=== PATIENT | female | born 1975 | race Caucasian/White ===

== ENCOUNTER → 2017-06-23 | Outpatient (CLI) | payer OTHER ==
--- NOTE | 2017-06-23 08:42 | RAD ---
2 Views of the Chest 06/23/2017 2:00 AM Indication: COUGH Comparison: Chest radiograph December 24, 2010 Findings: No new focal consolidation or infiltrate is identified. Increased density over the lung bases an AP view is most likely secondary to breast implants. No pneumothorax is seen. Multiple areas suggestive of pulmonary blebs are similar to prior study. No acute osseous changes identified. Impression: 1.No evidence of acute cardiopulmonary process or acute change from prior study is identified. 2. Multifocal bilateral blebs appear to be present. This is of uncertain etiology. Follow-up CT chest could be performed for further characterization as clinically indicated.
--- NOTE | 2017-06-23 08:49 | RAD ---
Lumbar spine, 3 views, 06/23/2017: History: Chronic low back pain The lumbar vertebral heights and intervertebral disc spaces are well-maintained. There are mild scattered marginal spurs. No fracture or subluxation is evident. Aortic calcific plaquing is present. IMPRESSION: 1. Mild marginal spurring. 2. No acute lumbar spine abnormality is detected.
--- NOTE | 2017-06-23 13:23 | RAD ---
DATE: 2017 EXAM: MAMMO BEENA SCREENING BILATERAL HISTORY: Routine screening, breast implants COMPARISON: Baseline study This study was interpreted with the benefit of Computerized Aided Detection (CAD). The breast parenchyma is heterogeneously dense, which could reduce sensitivity of mammography. Breast parenchyma level C. FINDINGS: 2-D routine and implant exclusion views were obtained in CC and MLO projections. Implant exclusion 3-D mammograms were also obtained in CC and MLO projections. The fibroglandular tissues are somewhat nodular in character. A discrete 6-7 mm nodule is seen anterolateral in the left breast on oblique tomogram image #7 and cc tomogram image #28. It lies superficially at approximately the 4:00 location. No other suspicious breast densities are seen. Minimal benign type calcifications present. No suspicious microcalcifications are evident. IMPRESSION: Small left breast nodule. Sonographic evaluation is suggested. BI-RADS CATEGORY: 0 INCOMPLETE: NEEDS ADDITIONAL IMAGING EVALUATION AND/OR PRIOR MAMMOGRAMS FOR COMPARISON. RECOMMENDED FOLLOW-UP: ADD ADDITIONAL IMAGING PQRS compliance statement: Patient information was entered into a reminder system with a target due date for the next mammogram. Mammography is a sensitive method for finding small breast cancers, but it does not detect them all and is not a substitute for careful clinical examination. A negative mammogram does not negate a clinically suspicious finding and should not result in delay in biopsying a clinically suspicious abnormality. "Our facility is accredited by the [employer] Mammography Program."
== END | disposition home or self-care (01) ==
LOC: MAMMO 08:06
PROVIDERS: ATTEND Nurse Practitioner Family
DX: Z12.31 Encounter for screening mammogram for malignant neoplasm of breast (principal); M54.40 Lumbago with sciatica, unspecified side; Z72.0 Tobacco use
CPT/HCPCS: 71046; 72100; 77063; 77067

== ENCOUNTER → 2017-06-30 | Outpatient (CLI) | payer OTHER ==
--- NOTE | 2017-06-30 09:56 | RAD ---
Limited left breast ultrasound 06/30/2017 Clinical indication: Left breast nodule 4:00 position. Comparison: Screening mammogram 06/23/2017 Findings: Limited left breast ultrasound: At the 4:00 position, 5 cm from the nipple, there is a circumscribed, oval hypoechoic structure with no internal blood flow measuring 0.4 x 0.2 x 0.4 cm with no posterior acoustic enhancement and suggestion of internal echoes or septations. At the 4:00 position 8 cm from the nipple, there is a similar appearing circumscribed hypoechoic structure with no internal blood flow measuring 0.4 x 0.2 x 0.3 cm. Impression: 2 similar-appearing subcentimeter hypoechoic structures with internal septations or debris, may represent complicated cysts or fibroadenomas. Recommend 6 month follow-up left breast ultrasound and left breast mammogram to assess for stability BI-RADS CATEGORY: 3 PROBABLY BENIGN FINDING(S)-SHORT INTERVAL FOLLOW-UP SUGGESTED RECOMMENDED FOLLOW-UP: 6M 6 MONTH FOLLOW-UP PQRS compliance statement: Patient information was entered into a reminder system with a target due date for the next mammogram. Mammography is a sensitive method for finding small breast cancers, but it does not detect them all and is not a substitute for careful clinical examination. A negative mammogram does not negate a clinically suspicious finding and should not result in delay in biopsying a clinically suspicious abnormality. "Our facility is accredited by the [employer] Mammography Program."
== END | disposition home or self-care (01) ==
LOC: US 08:50
PROVIDERS: ATTEND Nurse Practitioner Family
DX: R92.8 Other abnormal and inconclusive findings on diagnostic imaging of breast (principal); Z72.0 Tobacco use
CPT/HCPCS: 76641

== ENCOUNTER → 2017-08-01 | Outpatient (CLI) | payer OTHER ==
--- NOTE | 2017-08-01 15:41 | CARD ---
MR#: [id number] Date of Study: 08/01/2017 Ordering Physician: JHONATAN SHEPARD, Referring Physician: Ruthy KAY: Shasta Roman RDCS APPROVED REPORT INDICATION Exertional Dyspnea RISK FACTORS Smoking Reason : Patient complained of shortness of breath PROCEDURE The patient underwent an Exercise Stress Test using the Eladio Protocol. Blood pressure, heart rate, a nd EKG were monitored. An Echocardiogram was performed by material handling technician in four stages in quad fashion. At peak stress four se lected images were obtained and placed side by side with resting images for comparison. STRESS ECHO FINDINGS The resting Echocardiogram showed normal left ventricular systolic contractility with an estimated Ej ection Fraction of about 60 %. The Stress Echocardiogram showed normal augmentation of myocardial wall segments using a 16 segment m rob. The Stress Echocardiogram left ventricular systolic contractility has an estimated Ejection Fraction of about 70%. Test Type: Exercise Stress Nurse/Tech: RT Yonas (R) (N), HANDY Ojeda Test Indications: Exertional Dypsnea Cardiac History and Allergies: Hypertension Resting Heart Rate: 71 bpm Resting Blood Pressure: 112/74mmHg Pretest Chest Pain: No chest pain Nurse/Tech Notes No chest pain, no acute EKG changes, Submaximal seondary dyspnea, peak exercise oxygen saturation 93% POST EXERCISE Target HR: 150 Max HR: 148 bpm 84% of Maximum Predicted HR: 177 bpm Exercise duration: 10 min:sec, 13 Stage Exercise capacity: 13.4METs Chest Pain: No. Arrhythmia: No. ST Change: No. INTERPRETATION Stress EKG Conclusion: Baseline EKG showed sinus rhythm. No ischemic changes at peak stress. No arr hythmias. Preliminary Notification Critical Value: No <Conclusion> Treadmill exercise stress echocardiogram did not show any evidence of ischemia or infarct at slightly submaximal stress level of 84% PMR. Normal left ventricle systolic function with ejection fraction estimated at 60%. Patient had excellent activity tolerance of 13.4 mets. Low risk for cardiac events. Signed by : Jhonatan Shepard, Electronically Approved : 08/01/2017 15:40:33
== END | disposition home or self-care (01) ==
LOC: ECHO 09:43
PROVIDERS: ATTEND Internal Medicine Cardiovascular Disease
DX: R06.09 Other forms of dyspnea (principal)
CPT/HCPCS: 93307; 93350

== ENCOUNTER → 2019-02-04 | Outpatient (CLI) | payer BC ==
--- NOTE | 2019-02-04 17:06 | RAD ---
CHEST PA LATERAL History: Shortness of breath Comparison: 06/23/2017 two-view chest x-ray exam. Findings: The cardiomediastinal silhouette is normal. Pulmonary vasculature is normal. The lungs are clear. No pleural effusion or pneumothorax is seen. There is no acute bone abnormality. Subtle interstitial thickening of the lung rodriguez is similar to previous exam. Emphysematous involvement of the upper lung rodriguez noted. IMPRESSION: No acute cardiopulmonary process. Electronically signed by: Clark Levy MD (02/04/2019 5:03 PM) [facility]
== END | disposition home or self-care (01) ==
LOC: RAD 16:36
PROVIDERS: ATTEND Physician Assistant Medical
DX: J43.8 Other emphysema (principal)
CPT/HCPCS: 71046

== ENCOUNTER → 2020-07-16 | Outpatient (CLI) | payer BC ==
--- NOTE | 2020-07-17 08:44 | RAD ---
EXAMINATION: XR CHEST 2V CLINICAL HISTORY: Shortness of breath, sternal chest pain EXAM DATE/TIME: 07/16/2020 2:54 PM COMPARISON: 02/04/2019 FINDINGS: Lines, Tubes, and Devices: None. Cardiomediastinal Silhouette: Normal heart size. Aortic atherosclerotic calcification. Lungs and Pleura: No evidence of focal airspace consolidation or pleural effusion. Chronic changes co mpatible with COPD/emphysema. Pulmonary vasculature unremarkable. Bones and Soft Tissues: Degenerative changes of the thoracic spine. IMPRESSION: No evidence of acute cardiopulmonary abnormality or significant interval change. Electronically signed by: Roberth Juarez DO (07/17/2020 8:41 AM) [id number]
== END ==
LOC: PMG 14:48
PROVIDERS: ATTEND Physician Assistant
DX: R06.02 Shortness of breath (principal); R07.9 Chest pain, unspecified; M47.814 Spondylosis without myelopathy or radiculopathy, thoracic region
CPT/HCPCS: 71046

== ENCOUNTER → 2020-12-09 | Outpatient (CLI) | payer BC ==
--- NOTE | 2020-12-09 13:34 | RAD ---
CT ABDOMEN+PELVIS WO INDICATION: ABDOMINAL PAIN, GASTRITIS, DIARRHEA EXAM: Noncontrast CT of the abdomen and pelvis. Coronal and sagittal reformatted images were perform ed. PQRS compliance statement: One or more of the following individualized dose reduction techniques were utilized for this examinat ion: 1. Automated exposure control 2. Adjustment of the mA and/or kV according to patient size 3. Use of iterative reconstruction technique COMPARISON: None FINDINGS: No free air, free fluid, or fluid collection. Lower chest: The visualized lower lungs are aerated. No pleural or pericardial effusion. ABDOMEN: Liver: Decreased hepatic attenuation along the falciform ligament, likely focal fatty infiltration Gallbladder and biliary: Normal gallbladder without radiopaque stone. Normal caliber bile ducts. Spleen: Normal spleen. Pancreas: The noncontrast pancreas is homogeneous in attenuation without peripancreatic inflammatory changes. Adrenal glands: Normal adrenal glands. Kidneys and ureters: No opaque urinary calculi. Normal kidneys and ureters. GI tract: The stomach is decompressed and poorly evaluated. Normal caliber small bowel and colon. Nor mal appendix. Vascular structures: Normal caliber abdominal aorta. Mild to moderate aortoiliac atherosclerotic dise ase per Lymph nodes: No lymphadenopathy in the abdomen or pelvis. PELVIS: Genitourinary system: Urinary bladder is decompressed. Uterus is present. SKELETAL STRUCTURES AND SOFT TISSUES: No acute osseous abnormality. L2 hemangioma. IMPRESSION: No acute findings. Electronically signed by: Lito Hudson MD (12/09/2020 1:32 PM) [id number]
== END ==
LOC: CT 10:43
PROVIDERS: ATTEND Physician Assistant Medical
DX: I70.0 Atherosclerosis of aorta (principal); R10.9 Unspecified abdominal pain; R19.7 Diarrhea, unspecified; K29.70 Gastritis, unspecified, without bleeding
CPT/HCPCS: 74176

== ENCOUNTER → 2021-06-21 | Outpatient (CLI) | payer BC ==
--- NOTE | 2021-06-21 12:28 | RAD ---
EXAM: Chest, 2 views. HISTORY: Chest pain after Covid 19 COMPARISON: 07/16/2020 FINDINGS: 2 views of the chest are obtained. There is been slight interval increase in diffuse inters titial opacity. There is emphysema and linear pleural parenchymal scarring superimposed on chronic in terstitial prominence. There is no consolidation, pleural effusion or pneumothorax. The heart is norm al in size. IMPRESSION: 1. Slight interval increase in diffuse interstitial opacity due to infiltrate or chronic interstitial changes. 2. Emphysema with linear pleural parenchymal scarring. Electronically signed by: Candelaria Gregory MD (06/21/2021 12:26 PM) [id number]
== END ==
LOC: RAD 12:11
PROVIDERS: ATTEND Physician Assistant Medical
DX: J43.9 Emphysema, unspecified (principal); R91.8 Other nonspecific abnormal finding of lung field
CPT/HCPCS: 71046

== ENCOUNTER → 2021-07-08 | Outpatient (CLI) | payer BC, OTHER ==
--- NOTE | 2021-07-08 15:00 | RAD ---
EXAMINATION: MG DIGITAL BILAT DIAGNOSTIC MAMMO WITH BEENA History: PEA-SIZED LUMP 2:00 RT NIPPLE AREA Comparison: 06/23/2017. Technique: Bilateral digital diagnostic mammogram views were obtained. CAD was utilized. 3-D tomosyn thesis images were acquired. Subsequent right breast ultrasound was obtained. Findings: Bilateral mammogram: Breast Tissue Density B : There are scattered areas of fibroglandular density. There are bilateral re tropectoral saline breast implants. There is a spiculated mass measuring 1.6 cm at 12:00 1 cm posteri or to the nipple in the right breast. Multiple bilateral nodular opacities are unchanged. No suspicio us calcifications. Right breast ultrasound: Focused ultrasound of the right breast in area of concern was performed. At 11:00 2 cm from the nippl e, there is a spiculated irregular hypoechoic mass measuring 1.4 x 1.1 x 1.2 cm. This is highly suspi cious for malignancy. No abnormal lymph nodes in the right axilla. IMPRESSION: 1.4 cm spiculated right breast mass at 11:00 2 cm from the nipple. This is highly suggestive of malig hermann. Recommend ultrasound-guided biopsy. BI-RADS Category 5: Highly suggestive of malignancy. Results and recommendations were discussed by Dr. Goff with the patient at the time of the exam. A message was also left with a nurse at Ginna Leo's office at 2:28 PM on 07/08/2021. The images were reviewed with computer aided detection. Patient information is entered into the reminder system with a target due date for the next screening mammogram. Mammography is the most sensitive method for finding small breast cancers, but it does not detect the m all and is not a substitute for careful clinical examination. A negative mammogram does not negate a clinically suspicious finding and should not result in delay in biopsying a clinically suspicious a bnormality. "Our facility is accredited by the [employer] Mammography Program." FOR INTERNAL CODING PURPOSES Critical result: Findings discussed with the nurse at GINNA LEO's office at 07/08/2021 2:28 PM. RESULT CODE: (C) Electronically signed by: Ana Goff MD (07/08/2021 2:57 PM) [id number]
== END ==
LOC: MAMMO 12:48
PROVIDERS: ATTEND Physician Assistant Medical
DX: N63.11 Unspecified lump in the right breast, upper outer quadrant (principal)
CPT/HCPCS: 76642; 77066; G0279; 77062